=== PATIENT | female | born 1985 | race Caucasian/White ===

== ENCOUNTER 2017-10-29 13:50 | Emergency (ER) | payer OTHER ==
[~2017-10-29] VITALS: Ht 165.1 cm; Wt 83.9 kg
[~2017-10-29 13:50] MED LIST: KEFLEX500 MG PO; MACROBID 100 M100 M1; NOHOMEMEDICATIONS; NORCO 5-325 TA1 EACH PO; PHENERGAN 25 MG25 MG PO; RANITIDINE 150150 M1; ZOFRAN ODT4 MG PO
[2017-10-29 14:50] LABS: ABSOLUTE BASOPHILS 0.1 thou/uL (0.0-0.2); ABSOLUTE EOSINOPHILS 0.2 thou/uL (0.0-0.7); ABSOLUTE LYMPHOCYTES 2.2 thou/uL (0.8-5.3); ABSOLUTE NEUTROPHILS 14.7 thou/uL (1.6-8.1); BASOPHILS 0.3 %; EOSINOPHILS 1.3 %; HEMATOCRIT 39.7 % (37.0-47.0); HEMOGLOBIN 13.1 gm/dL (12.0-15.0); LYMPHOCYTES 11.8 %; MCH 28.9 pg (26.0-34.0); MCV 87.4 fL (80.0-100.0); MONOCYTES 5.7 %; MPV 7.2 fl. (7.2-11.1); NUCLEATED RBCS 0 /100WBC; PLATELET COUNT* 357 thou/uL (150-400); POLYS 80.9 %; RBC 4.54 mil/uL (4.20-5.00); RDW-CV 13.5 % (10.5-14.5); WBC 18.2 thou/uL (4.0-11.0)
[2017-10-29 14:57] LABS: CALCIUM 9.2 mg/dL (8.5-10.1); CREATININE 0.7 mg/dL (0.6-1.3); POTASSIUM 3.8 mmol/L (3.5-5.1)
[2017-10-29 15:06] LABS: ALBUMIN 3.2 g/dL (3.4-5.0); TOTAL BILIRUBIN 0.2 mg/dL (<0.1-1.0); TOTAL PROTEIN 7.6 g/dL (6.4-8.2)
[2017-10-29 15:22] LABS: URINE BILIRUBIN NEGATIVE (Negative); URINE BLOOD 3+ (Negative); URINE CLARITY CLOUDY; URINE COLOR YELLOW; URINE GLUCOSE-RANDOM NEGATIVE (Negative); URINE KETONES NEGATIVE (Negative); URINE PROTEIN 2+ (Negative); URINE SPECIFIC GRAVITY 1.025 (1.005-1.030); URINE UROBILINOGEN 0.2 E.U./dl (0.2-1.0)
[2017-10-29 15:24] LABS: URINE LEUKOCYTES-REFLEX 3+ (Negative); URINE NITRITE-REFLEX POSITIVE (Negative)
[2017-10-29 15:41] LABS: HYALINE CASTS 0-3 Few /LPF (None Seen)
[2017-10-29 15:42] LABS: CRYSTALS None Seen /LPF (None Seen); MUCUS None Seen strn/LPF (None Seen); SQUAMOUS 4-10 Moderate /LPF (0-3); URINE WBC-REFLEX >25 Many /HPF (0-5); WBC CLUMPS Few (None Seen)
[2017-10-29] MEDS ORDERED: CIPRO500 M1 PO (16:12)
[2017-10-29] MEDS ORDERED: TAMSULOSIN HCL0.4 MG PO (16:12)
[2017-10-29] MEDS ORDERED: NORCO 5-325 TA1 EACH PO (16:12)
[2017-10-29 16:41] VITALS: BP 135/95
== END 2017-10-29 16:41 | disposition home or self-care (01) ==
LOC: M.ERS 13:50
PROVIDERS: Nurse Practitioner Family
DX: N20.0 Calculus of kidney (principal); N39.0 Urinary tract infection, site not specified; B96.20 Unspecified Escherichia coli [E. coli] as the cause of diseases classified elsewhere; K21.9 Gastro-esophageal reflux disease without esophagitis; Z88.1 Allergy status to other antibiotic agents

== ENCOUNTER 2017-12-14 08:36 | Emergency (ER) | payer OTHER ==
[~2017-12-14] VITALS: Ht 162.6 cm; Wt 79.4 kg
[~2017-12-14 08:36] MED LIST changes: +CIPRO500 M1 PO; +TAMSULOSIN HCL0.4 MG PO
[2017-12-14 08:42] VITALS: BP 157/93
[2017-12-14] MEDS ORDERED: AMOXICILLIN 50500 MG PO (09:03)
[2017-12-14] MEDS ORDERED: ULTRAM 50MG TAB50 MG PO (09:03)
== END 2017-12-14 09:08 | disposition home or self-care (01) ==
LOC: M.ERS 08:36
DX: K02.9 Dental caries, unspecified (principal); K21.9 Gastro-esophageal reflux disease without esophagitis; F17.200 Nicotine dependence, unspecified, uncomplicated; Z88.8 Allergy status to other drugs, medicaments and biological substances

== ENCOUNTER 2018-11-10 17:30 | Emergency (ER) | payer OTHER ==
[~2018-11-10] VITALS: Ht 165.1 cm; Wt 90.7 kg
[~2018-11-10 17:30] MED LIST changes: +AMOXICILLIN 50500 MG PO; +ULTRAM 50MG TAB50 MG PO
[2018-11-10 18:19] LABS: URINE BILIRUBIN NEGATIVE (Negative); URINE BLOOD TRACE (Negative); URINE CLARITY CLEAR; URINE COLOR YELLOW; URINE GLUCOSE-RANDOM NEGATIVE (Negative); URINE KETONES NEGATIVE (Negative); URINE LEUKOCYTES-REFLEX 2+ (Negative); URINE NITRITE-REFLEX NEGATIVE (Negative); URINE PROTEIN NEGATIVE (Negative); URINE UROBILINOGEN 0.2 E.U./dl (0.2-1.0)
[2018-11-10 18:27] LABS: BACTERIA-REFLEX 1-9 Few /HPF (None Seen); CASTS None Seen /LPF (None Seen); MUCUS None Seen strn/LPF (None Seen); SQUAMOUS >10 Many /LPF (0-3); URINE RBC 0-2 Rare /HPF (0-2); URINE WBC-REFLEX 6-15 Few /HPF (0-5)
[2018-11-10 18:28] LABS: CRYSTALS None Seen /LPF (None Seen)
[2018-11-10] MEDS ORDERED: MEDROL DOSPAK21 TA1 PO (18:29)
[2018-11-10] MEDS ORDERED: MACRODANTIN100 MG PO (18:29)
[2018-11-10 19:41] VITALS: BP 142/95
== END 2018-11-10 19:42 | disposition home or self-care (01) ==
LOC: M.ERS 17:30
PROVIDERS: Nurse Practitioner Family
DX: N39.0 Urinary tract infection, site not specified (principal); M54.42 Lumbago with sciatica, left side; F17.200 Nicotine dependence, unspecified, uncomplicated; K21.9 Gastro-esophageal reflux disease without esophagitis; Z88.8 Allergy status to other drugs, medicaments and biological substances

== ENCOUNTER 2019-01-03 11:03 | Emergency (ER) | payer OTHER ==
[~2019-01-03] VITALS: Ht 165.1 cm; Wt 93.0 kg
[~2019-01-03 11:03] MED LIST changes: +MACRODANTIN100 MG PO; +MEDROL DOSPAK21 TA1 PO
[2019-01-03] MEDS ORDERED: AMOXICILLIN 50500 MG PO (12:02)
[2019-01-03] MEDS ORDERED: MEDROLDOSEPACK PO (12:02)
[2019-01-03 12:29] VITALS: BP 145/90
== END 2019-01-03 12:30 | disposition home or self-care (01) ==
LOC: M.ERS 11:03
DX: J02.9 Acute pharyngitis, unspecified (principal); F17.200 Nicotine dependence, unspecified, uncomplicated; K21.9 Gastro-esophageal reflux disease without esophagitis; Z88.8 Allergy status to other drugs, medicaments and biological substances

== ENCOUNTER 2019-03-27 16:00 | Emergency (ER) | payer OTHER ==
[~2019-03-27] VITALS: Ht 165.1 cm; Wt 93.0 kg
[~2019-03-27 16:00] MED LIST changes: +MEDROLDOSEPACK PO
[2019-03-27 16:14] LABS: URINE BILIRUBIN NEGATIVE (Negative); URINE BLOOD 3+ (Negative); URINE CLARITY CLOUDY; URINE COLOR YELLOW; URINE GLUCOSE-RANDOM NEGATIVE (Negative); URINE KETONES NEGATIVE (Negative); URINE LEUKOCYTES-REFLEX 1+ (Negative); URINE NITRITE-REFLEX NEGATIVE (Negative); URINE PROTEIN TRACE (Negative); URINE SPECIFIC GRAVITY 1.025 (1.005-1.030); URINE UROBILINOGEN 0.2 E.U./dl (0.2-1.0)
[2019-03-27 16:22] LABS: SQUAMOUS >10 Many /LPF (0-3)
[2019-03-27 16:23] LABS: URINE WBC-REFLEX 6-15 Few /HPF (0-5)
[2019-03-27 16:24] LABS: BACTERIA-REFLEX >30 Many /HPF (None Seen); URINE RBC 3-10 Few /HPF (0-2)
[2019-03-27 16:25] LABS: CASTS None Seen /LPF (None Seen); CRYSTALS None Seen /LPF (None Seen); MUCUS 0-3 Light strn/LPF (None Seen)
[2019-03-27 17:25] LABS: ABSOLUTE BASOPHILS 0.1 thou/uL (0.0-0.2); ABSOLUTE EOSINOPHILS 0.3 thou/uL (0.0-0.7); ABSOLUTE LYMPHOCYTES 2.8 thou/uL (0.8-5.3); ABSOLUTE MONOCYTES 0.9 thou/uL (0.0-1.2); ABSOLUTE NEUTROPHILS 9.8 thou/uL (1.6-8.1); BASOPHILS 0.7 %; EOSINOPHILS 1.8 %; HEMATOCRIT 39.9 % (37.0-47.0); HEMOGLOBIN 13.5 gm/dL (12.0-15.0); LYMPHOCYTES 20.1 %; MCH 29.2 pg (26.0-34.0); MCHC 33.7 g/dL (28.0-37.0); MCV 86.5 fL (80.0-100.0); MONOCYTES 6.5 %; MPV 7.1 fl. (7.2-11.1); NUCLEATED RBCS 0 /100WBC; PLATELET COUNT* 371 thou/uL (150-400); POLYS 70.9 %; RBC 4.62 mil/uL (4.20-5.00); RDW-CV 14.5 % (10.5-14.5); WBC 13.9 thou/uL (4.0-11.0)
[2019-03-27 17:31] LABS: CALCIUM 8.8 mg/dL (8.5-10.1); CREATININE 0.6 mg/dL (0.6-1.3); POTASSIUM 3.7 mmol/L (3.5-5.1)
[2019-03-27] MEDS ORDERED: PRENATAL PO (17:33)
[2019-03-27 17:36] LABS: ALBUMIN 3.1 g/dL (3.4-5.0); TOTAL BILIRUBIN 0.1 mg/dL (<0.1-1.0); TOTAL PROTEIN 7.5 g/dL (6.4-8.2)
[2019-03-27] MEDS ORDERED: KEFLEX500 M1 PO (17:36)
[2019-03-27 18:48] VITALS: BP 166/78
== END 2019-03-27 18:49 | disposition home or self-care (01) ==
LOC: M.ERS 16:00
PROVIDERS: Nurse Practitioner Family
DX: O46.91 Antepartum hemorrhage, unspecified, first trimester (principal); O99.611 Diseases of the digestive system complicating pregnancy, first trimester; K21.9 Gastro-esophageal reflux disease without esophagitis; O99.331 Smoking (tobacco) complicating pregnancy, first trimester; F17.200 Nicotine dependence, unspecified, uncomplicated; Z3A.01 Less than 8 weeks gestation of pregnancy